=== PATIENT | male | born 1960 | race Caucasian/White ===

== ENCOUNTER 2024-05-28 09:27 | Emergency (ER) | payer SELFPAY ==
[2024-05-28] MEDS: Triamcinolone Acetonide 40 MG/ML 1 ML SDV INJECT STA (10:49)
== END 2024-05-28 11:10 | disposition home or self-care (01) ==
LOC: MW.ED 09:27
DX: J10.1 Influenza due to other identified influenza virus with other respiratory manifestations (principal); Z75.3 Unavailability and inaccessibility of health-care facilities
CPT/HCPCS: 87428; 87651; 96372; 99283; J3301